=== PATIENT | male | born 1975 | race Caucasian/White ===

== ENCOUNTER 2022-10-29 18:59 | Emergency (ER) | payer OTHER, SELFPAY ==
--- NOTE | ~2022-10-29 | US_ITS ---
EXAMINATION: US VENOUS ULTRASOUND WITH DOPPLER LOWER EXTREMITY, LEFT CLINICAL INFORMATION: Swelling, pain COMPARISON: None TECHNIQUE: Ultrasound of the deep veins is performed from the hip to the calf with compression sonography and color and pulse Doppler assessment. Spectral analysis with color-flow imaging is performed. FINDINGS: There is normal venous compression and respiratory variation and augmented flow. The visualized common femoral vein, superficial femoral vein, profunda femoral vein, popliteal vein, and the trifurcation region shows no evidence of deep venous thrombosis. There is no significant popliteal fossa cyst. If the patient's symptoms persist, followup ultrasound in 5 days 7 days might be of value to exclude proximal propagation from a non-visualized calf vein. US/US venous duplex LE LT IMPRESSION: No DVT demonstrated in the left lower extremity.
--- NOTE | ~2022-10-29 | XR_ITS ---
EXAMINATION: XR ANKLE, LEFT CLINICAL INFORMATION: Swelling and pain. COMPARISON: None TECHNIQUE: 3 views of the left ankle. FINDINGS: Soft tissue swelling at lateral malleolus. No fracture or dislocation. Ankle mortise is congruent XR/XR ankle LT min 3V IMPRESSION: Soft tissue swelling at lateral malleolus. No acute osseous abnormality.
[2022-10-29 19:14] VITALS: BP 93/67; PULSE 66; RESP 18; TEMP 37.1; BMI 28.0
--- NOTE | 2022-10-29 19:14 | ED_ITS ---
HPI - Extremity Injury (Lower) General Chief Complaint: General Medical Stated Complaint: ?swollen left foot and ankle Time Seen by Provider: 10/29/22 20:29 Source: patient Mode of arrival: ambulatory Limitations: no limitations History of Present Illness HPI Narrative: 47 yo male presents to the ER for evaluation of nontraumatic left ankle pain, swelling and redness that has been waxing and waning for the last several days. He reports the redness and pain seem to improve when he stays off of his foot but increase when he walks on it too much. The redness and swelling are located on the outside of the left ankle, extend to the foot and up the leg. He reports the leg is swollen. Denies any injury and reports the symptoms came on slowly over several days. No fever, chills, N/V/D, SOB or chest pain. No calf pain. No wounds. MD complaint: ankle injury Onset (ago): day(s) Injury: Left: ankle and foot Type of Injury: unknown Place: home Severity: moderate Severity scale (1-10): 6 Relieving factors: immobilization Exacerbating factors: weight bearing Associated symptoms: swelling and able to partially bear weight Other symptoms: none Related Data Previous Rx's Medication Instructions Recorded cephalexin 500 mg capsule 500 mg PO Q6H 10 days #40 caps 10/29/22 doxycycline monohydrate 100 mg 100 mg PO BID #20 caps 10/29/22 capsule ibuprofen 600 mg tablet 600 mg PO Q8H PRN pain #20 tabs 10/29/22 Allergies Allergy/AdvReac Type Severity Reaction Status Date / Time No Known Allergies Allergy Verified 10/29/22 19:16 Review of Systems Review of Systems: Yes all other systems are reviewed and are negative [facility] Social History Social History Advance Directives: No Advance Directives Information Provided: No Physical Exam Vital Signs: Vital Signs: Last Vital Signs Temp 98.7 F 10/29/22 19:14 Pulse 66 10/29/22 19:14 Resp 18 10/29/22 19:14 BP 93/67 10/29/22 19:14 O2 Del Method 10/29/22 19:14 BMI result Body Mass Index 28.0 Appearance: Alert. Oriented X3. No acute distress. HEENT: normal inspection CVS: Normal heart rate and rhythm. Pulses normal. Respiratory: No respiratory distress. Skin: Skin warm and dry. Normal skin color. Normal skin turgor. No rashes. Extremities: left lower leg with moderate erythema, swelling and warmth involving the middle lower leg to the lateral malleolus and lateral foot. no significant pain with dorsiflexion or plantarflexion. 2+ DP pulses. no calf tenderness. 2+ edema of the distal lower leg and foot. left great toe with superficial abrasion Neuro: Oriented X 3. No motor deficit. No sensory deficit. gait not tested due to pain Course Course Course Narrative: ORAL Coronado is a [id number]-male presenting for evaluation of left ankle redness and swelling x 3-4 days. Patient denies any trauma or injury. Left lower extremity is erythematous, edematous, and warm to the touch. no significant pain with range of motion, doubt septic joint or gout. VSS in triage. Labs, and US left LE ordered. Patient stable to return to the waiting room until a treatment room becomes available. Reevaluation(s) Reevaluation #1: no leukocytosis, no DVT. XR with only soft tissue swelling presentation c/w cellulitis. will treat with PO abx, NSAIDS. stable for d/c home with outpatient follow up. return precautions discussed Medical Decision Making Differential Diagnosis Differential Diagnoses: The differential diagnosis associated with the presentation includes cellulitis, ankle sprain, DVT, less likely septic joint, gout Admission/Observation Consideration of admission/observation: Escalation of care including admission/observation considered Lab Data MDM Lab Attestation statement: I reviewed the patient's lab results. no leukocytosis 10/29/22 19:41 10/29/22 19:41 Labs: Lab Results 10/29/22 10/29/22 Range/Units 19:41 19:41 WBC 8.3 (4.8-10.8) X10*3/uL RBC 4.74 (4.60-5.80) X10*6/uL Hgb 12.1 L (14.0-18.0) g/dl Hct 38.2 L (42.0-52.0) % MCV 80.6 (80.0-98.0) fL MCH 25.5 L (27.0-33.0) pg MCHC 31.7 (31.0-36.0) g/dl RDW 14.4 (11.0-16.0) % Plt Count 207 (160-400) X10*3/uL MPV 12.6 H (9.4-12.4) fL Immature Gran % (Auto) 0.4 (0.0-0.4) % Neut % (Auto) 66.6 (45-73) % Lymph % (Auto) 20.6 (20-40) % [place] % (Auto) 11.1 H (2-11) % Eos % (Auto) 0.8 (0-4) % Baso % (Auto) 0.5 (0-2) % Lymph # (Auto) 1.7 (1.2-4.9) X10*3/uL [place] # (Auto) 0.9 (0.1-1.2) X10*3/uL Eos # (Auto) 0.1 (0.0-0.4) X10*3/uL Baso # (Auto) 0.0 (0.0-0.2) X10*3/uL Abs Immat Gran (auto) 0.03 (0.00-0.03) X10*3/uL Absolute Neuts (auto) 5.5 (2.0-8.3) x10*3/uL Absolute Nucleated RBC 0.000 (0.0-0.012) X10*3/uL Nucleated RBC % (auto) 0.0 (0.0-0.2) /100WBC Sodium 138 (135-145) mmol/L Potassium 4.4 (3.3-5.1) mmol/L Chloride 104 (96-108) mmol/L Carbon Dioxide 25 (22-29) mmol/L Anion Gap 13 (12-20) BUN 13 (9-16) mg/dL Creatinine 0.97 (0.5-1.4) mg/dL Estim Creat Clear Calc 104.5 Estimated GFR > 60 Random Glucose 101 (60-115) mg/dL Calcium 8.8 (8.4-10.2) mg/dL Magnesium 1.8 (1.6-2.6) mg/dL Total Bilirubin 0.7 (0.0-1.0) mg/dL Direct Bilirubin 0.2 (0.0-0.5) mg/dL AST 14 (5-37) U/L ALT 8 (0-40) U/L Alkaline Phosphatase 88 (39-117) U/L Total Protein 6.6 (6.5-8.0) g/dL Albumin 3.8 (3.5-5.0) g/dL Independent Interpretation I performed an independent interpretation of an: Plain X-Ray and Ultrasound Interpretation: no acute DVT appreciated xr ankle without acute fracture, no crystals Radiology Impression Discussion of test interpretation with radiology: I have reviewed the radiologist's reading. Radiologist Impression: US/US venous duplex LE LT IMPRESSION: No DVT demonstrated in the left lower extremity. XR/XR ankle LT min 3V IMPRESSION: Soft tissue swelling at lateral malleolus. No acute osseous abnormality. Prescription Management I considered prescription management with: Pain Medication and Antibiotic Critical Care Time Critical Care Time Critical Care Time: No Discharge Plan Discharge Clinical Impression: Cellulitis Patient Disposition: Home, Self-Care Instructions: Cellulitis (ED), Warm Compress or Soak (ED) Additional Instructions: Your lab workup today was unremarkable. Ultrasound did not show any evidence of blood clot and x-ray showed only soft tissue swelling Take the prescribed antibiotics as directed - do not miss any doses and complete the entire course Elevate your leg when possible Use warm compresses to the leg to help increase blood flow to the area and fight the infection Follow up with your doctor in the next 1-2 weeks to ensure resolution If you develop new or worsening symptoms call 911 or come back to the ER for further evaluation. Prescriptions: New cephalexin 500 mg capsule 500 mg PO Q6H 10 Days Qty: 40 0RF doxycycline monohydrate 100 mg capsule 100 mg PO BID Qty: 20 0RF ibuprofen 600 mg tablet 600 mg PO Q8H PRN (Reason: pain) Qty: 20 0RF Referrals: Thelma Reyes CNP [Primary Care Provider] - Discharge Date/Time: 10/29/22 20:43
[2022-10-29 19:46] LABS: MANUAL DIFF FLAG NO
[2022-10-29 19:47] LABS: Basophils Percent Auto 0.5 % (0-2); Eosinophils Absolute Auto 0.1 X10*3/uL (0.0-0.4); Eosinophils Percent Auto 0.8 % (0-4); Hematocrit 38.2 % (42.0-52.0); Hemoglobin 12.1 g/dl (14.0-18.0); Imm Gran Abs Auto 0.03 X10*3/uL (0.00-0.03); Imm Gran Pct Auto 0.4 % (0.0-0.4); Lymphocytes Absolute Auto 1.7 X10*3/uL (1.2-4.9); Lymphocytes Percent Auto 20.6 % (20-40); Mean Corpuscular HGB Conc 31.7 g/dl (31.0-36.0); Mean Corpuscular Hemoglobin 25.5 pg (27.0-33.0); Mean Corpuscular Volume 80.6 fL (80.0-98.0); Mean Platelet Volume 12.6 fL (9.4-12.4); Monocytes Absolute Auto 0.9 X10*3/uL (0.1-1.2); Monocytes Percent Auto 11.1 % (2-11); Neutrophils Absolute Auto 5.5 x10*3/uL (2.0-8.3); Neutrophils Percent Auto 66.6 % (45-73); Platelet Count 207 X10*3/uL (160-400); Red Blood Count 4.74 X10*6/uL (4.60-5.80); Red Cell Distribution Width 14.4 % (11.0-16.0); White Blood Count 8.3 X10*3/uL (4.8-10.8)
[2022-10-29 20:05] LABS: Alanine Aminotransferase 8 U/L (0-40); Albumin Level 3.8 g/dL (3.5-5.0); Alkaline Phosphatase 88 U/L (39-117); Anion Gap 13 (12-20); Aspartate Amino Transferase 14 U/L (5-37); Bilirubin Direct 0.2 mg/dL (0.0-0.5); Bilirubin Total 0.7 mg/dL (0.0-1.0); Blood Urea Nitrogen 13 mg/dL (9-16); Calcium 8.8 mg/dL (8.4-10.2); Carbon Dioxide 25 mmol/L (22-29); Chloride 104 mmol/L (96-108); Creatinine Clr Calc Pharmacy 104.5; Estimated Glomerular Filt Rate > 60; Glucose Random 101 mg/dL (60-115); Magnesium 1.8 mg/dL (1.6-2.6); Potassium 4.4 mmol/L (3.3-5.1); Sodium 138 mmol/L (135-145); Total Protein 6.6 g/dL (6.5-8.0)
[2022-10-29] MEDS: Diphth,Pertus(ACell),Tet Adult 0.5 ML SYRINGE IM (20:39)
--- NOTE | 2022-10-29 20:42 | PC.NURSE ---
tdap given right deltoid, pt tolerated well
== END 2022-10-29 20:43 | disposition home or self-care (01) ==
PROVIDERS: Physician Assistant; Emergency Provider Emergency Medicine; PCP Nurse Practitioner Family
DX: S90.512A Abrasion, left ankle, initial encounter (principal); L03.116 Cellulitis of left lower limb; R60.0 Localized edema; X58.XXXA Exposure to other specified factors, initial encounter; Y93.9 Activity, unspecified; Y92.9 Unspecified place or not applicable; Y99.9 Unspecified external cause status; Z79.899 Other long term (current) drug therapy; Z23 Encounter for immunization
CPT/HCPCS: 36415; 73610; 80048; 80076; 83735; 85025; 90471; 90715; 93971; 99282; 99283; 99284

== ENCOUNTER 2023-03-25 07:44 | Emergency (ER) | payer OTHER, SELFPAY ==
[2023-03-25 07:46] VITALS: BP 122/84; PULSE 100; O2SAT 95
[2023-03-25 07:53] VITALS: BP 142/80; PULSE 90; RESP 19; TEMP 36.7; O2SAT 98; BMI 28.1
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
== END 2023-03-25 09:02 | disposition home or self-care (01) ==
PROVIDERS: Emergency Provider Emergency Medicine; PCP Internal Medicine
DX: Z04.1 Encounter for examination and observation following transport accident (principal)
CPT/HCPCS: 99282; 99284

== ENCOUNTER 2023-08-21 09:26 | Outpatient (REF) | payer BC, OTHER, SELFPAY | END 2023-08-21 09:27 | disposition home or self-care (01) | LOC: HO.HOSX 09:26 | PROVIDERS: Visit Provider Orthopaedic Surgery | DX: Z13.89 Encounter for screening for other disorder (principal) ==

== ENCOUNTER 2023-08-28 08:16 | Outpatient (REF) | payer BC, SELFPAY | END 2023-08-28 08:17 | disposition home or self-care (01) | LOC: HO.HOSX 08:16 | PROVIDERS: Visit Provider Orthopaedic Surgery | DX: Z13.89 Encounter for screening for other disorder (principal) ==

== ENCOUNTER 2023-12-03 20:43 | Emergency (ER) | payer BC, SELFPAY ==
[2023-12-03 21:00] VITALS: BP 154/95; PULSE 82; RESP 17; TEMP 36.7; O2SAT 100; BMI 28.2
[2023-12-03 21:59] LABS: Basophils Percent Auto 0.5 % (0-2); Eosinophils Absolute Auto 0.1 X10*3/uL (0.0-0.4); Eosinophils Percent Auto 1.2 % (0-4); Hematocrit 29.5 % (42.0-52.0); Hemoglobin 8.9 g/dl (14.0-18.0); Imm Gran Abs Auto 0.04 X10*3/uL (0.00-0.03); Imm Gran Pct Auto 0.5 % (0.0-0.4); Lymphocytes Absolute Auto 1.5 X10*3/uL (1.2-4.9); Lymphocytes Percent Auto 20.9 % (20-40); MANUAL DIFF FLAG NO; Mean Corpuscular HGB Conc 30.2 g/dl (31.0-36.0); Mean Corpuscular Hemoglobin 24.2 pg (27.0-33.0); Mean Corpuscular Volume 80.2 fL (80.0-98.0); Mean Platelet Volume 10.2 fL (9.4-12.4); Monocytes Absolute Auto 0.6 X10*3/uL (0.1-1.2); Monocytes Percent Auto 8.3 % (2-11); Neutrophils Absolute Auto 5.1 x10*3/uL (2.0-8.3); Neutrophils Percent Auto 68.6 % (45-73); Platelet Count 266 X10*3/uL (160-400); Red Blood Count 3.68 X10*6/uL (4.60-5.80); Red Cell Distribution Width 16.5 % (11.0-16.0); White Blood Count 7.4 X10*3/uL (4.8-10.8)
[2023-12-03 22:16] LABS: Alanine Aminotransferase 17 U/L (0-40); Albumin Level 3.8 g/dL (3.5-5.0); Alkaline Phosphatase 132 U/L (39-117); Anion Gap 14 (12-20); Aspartate Amino Transferase 22 U/L (5-37); Bilirubin Total 0.2 mg/dL (0.0-1.0); Blood Urea Nitrogen 18 mg/dL (9-16); Calcium 9.6 mg/dL (8.4-10.2); Carbon Dioxide 29 mmol/L (22-29); Chloride 102 mmol/L (96-108); Creatinine Clr Calc Pharmacy 145.7; Estimated Glomerular Filt Rate > 60; Glucose Random 102 mg/dL (60-115); Potassium 4.4 mmol/L (3.3-5.1); Sodium 141 mmol/L (135-145); Total Protein 7.6 g/dL (6.5-8.0)
[2023-12-03 22:20] LABS: B Type Natriuretic Peptide 41 pg/mL (<100)
--- NOTE | 2023-12-04 02:26 | PC.NURSE ---
pt not in waiting room at this time, labs reviewed with dr Yoder and no need to call pt back to be seen.
== END 2023-12-04 03:07 | disposition left against medical advice (07) ==
PROVIDERS: Emergency Provider Emergency Medicine
DX: M79.89 Other specified soft tissue disorders (principal)
CPT/HCPCS: 36415; 80053; 83880; 85025; 99281; 99283

== ENCOUNTER → 2025-02-15 12:29 | Outpatient (BNVA) | payer OTHER, SELFPAY | PROVIDERS: Visit Provider Nurse Practitioner Family ==